=== PATIENT | female | born 1995 | race Caucasian/White ===

== ENCOUNTER 2017-03-22 10:23 | Emergency (ER) | payer MEDICAID ==
[~2017-03-22] VITALS: Ht 157.5 cm; Wt 83.5 kg
[2017-03-22 10:33] VITALS: BP 141/93; Ht 157.5 cm; Wt 83.5 kg
== END 2017-03-22 12:45 | disposition home or self-care (01) ==
LOC: ED 10:23
DX: J06.9 Acute upper respiratory infection, unspecified (principal)
CPT/HCPCS: J7613; J7644; Q0092